=== PATIENT | female | born 1990 | race African-American/Black ===

== ENCOUNTER 2019-10-18 19:51 | Emergency (ER) | payer SELFPAY ==
[~2019-10-18] VITALS: Ht 154.9 cm; Wt 47.2 kg
[2019-10-18 20:10] VITALS: BP 100/60
--- NOTE | 2019-10-18 20:10 | NUR ---
ED Nurse Note: Pt walked into ED c/o right side chest pain, pain in shoulder to neck d/t coughing for one week. Pt stated she was sick, coughing. Pt stated 8/10 pain worse with coughing. Not in any distress. No SOB. VSS.
--- NOTE | 2019-10-18 20:33 | NUR ---
ED Nurse Note: Xray at bedside.
--- NOTE | 2019-10-18 20:40 | Emergency Room Report ---
History of Present Illness General Chief Complaint: Upper Respiratory Illness Present Illness HPI 29-year-old female with no significant past medical history here complaining for 1 month of cough and congestion with green phlegm. Reports that she smokes marijuana on daily basis. Denies tobacco smoke at this time. Denies other drug use. Denies any new onset fever and chills and sore throat. Has not taken medication for symptom relief. Complains of 2 days of sternal and bilateral lower ribs pain radiating to his shoulders x2 days. Denies any fall or injury. Denies other associated symptoms. Rating pain 5 out of 10 without radiation. Denies at this time. Up-to-date with immunization. Denies any recent travel. Allergies: Coded Allergies: No Known Allergies (Unverified , 10/18/19) Patient History Past Medical History: see triage record Past Surgical History: unable to obtain Pertinent Family History: none Last Menstrual Period: 10/11/2019 Now: No Immunizations: UTD Reviewed Nursing Documentation: PMH: Agreed; PSxH: Agreed Nursing Documentation-PMH Hx Asthma: Yes Review of Systems All Other Systems: negative except mentioned in HPI Physical Exam Vital Signs Date Time Temp Pulse Resp B/P (MAP) Pulse Ox O2 Delivery O2 Flow Rate FiO2 10/18/19 20:02 98.4 70 16 100/60 (73) 98 Room Air Sp02 EP Interpretation: reviewed, normal General Appearance: no apparent distress, alert, GCS 15, non-toxic Head: normocephalic, atraumatic Eyes: bilateral eye normal inspection, bilateral eye PERRL ENT: hearing grossly normal, normal pharynx, no angioedema, normal voice Neck: full range of motion, supple/symm/no masses Respiratory: chest non-tender, lungs clear, normal breath sounds, no rhonchi, no wheezing, speaking full sentences Cardiovascular #1: regular rate, rhythm, no edema, no murmur Gastrointestinal: non tender, soft, no mass Rectal: deferred Genitourinary: no CVA tenderness Musculoskeletal: back normal, no calf tenderness Neurologic: alert, motor strength/tone normal, oriented x3, sensory intact, responsive, speech normal Psychiatric: judgement/insight normal, memory normal, mood/affect normal, no suicidal/homicidal ideation Skin: no rash Lymphatic: no adenopathy Medical Decision Making PA Attestation All my diagnosis and treatment plans were reviewed ad discussed with my supervising physician Dr. Dickerson Diagnostic Impression: Primary Impression: Acute bacterial bronchitis Additional Impression: Acute costochondritis ER Course 29-year-old female with no significant past medical history here complaining for 1 month of cough and congestion with green phlegm. Reports that she smokes marijuana on daily basis. Denies tobacco smoke at this time. Denies other drug use. Denies any new onset fever and chills and sore throat. Has not taken medication for symptom relief. Complains of 2 days of sternal and bilateral lower ribs pain radiating to his shoulders x2 days. Denies any fall or injury. Denies other associated symptoms. Rating pain 5 out of 10 without radiation. Denies at this time. Up-to-date with immunization. Denies any recent travel. Ddx considered but are not limited to: bronchitis, PNA, URI viral, bacterial bronchitis Vital signs: are WNL, pt. is afebrile H&PE are most consistent with: Bacterial bronchitis, costochondritis ORDERS: Chest x-ray, Augmentin, guaifenesin, albuterol, Motrin ED INTERVENTIONS: None required at this time. DISCHARGE: At this time pt. is stable for d/c to home. Will provide printed patient care instructions, and any necessary prescriptions. Care plan and follow up instructions have been discussed with the patient prior to discharge. Patient to avoid smoking, follow-up primary care provider, take medication as directed, if worsening symptoms return to emergency room Chest X-Ray Diagnostic Results Chest X-Ray Diagnostic Results : Chest X-Ray Ordered: Yes # of Views/Limited/Complete: 1 View Indication: Other - Cough EP Interpretation: Yes CHRISTIN Xray: Interpretation reviewed, by supervising MD, and agrees with findings. Interpretation: no consolidation, no effusion, no pneumothorax Impression: No acute disease Electronically Signed by: Rhoda Jerome PA-C Last Vital Signs Date Time Temp Pulse Resp B/P (MAP) Pulse Ox O2 Delivery O2 Flow Rate FiO2 10/18/19 20:02 98.4 70 16 100/60 (73) 98 Room Air Disposition: HOME, SELF-CARE Condition: Stable Scripts Ibuprofen* (MOTRIN*) 600 Mg Tablet 600 MG ORAL Q8H PRN for For Pain, #30 TAB 0 Refills Prov: Rhoda Farrell 10/18/19 Albuterol Sulfate (VENTOLIN HFA) 18 Gm Hfa.aer.ad 2 PUFFS INH EVERY 6 HOURS, #18 GM 0 Refills Prov: Rhoda Farrell 10/18/19 Guaifenesin* (GUAIFENESIN*) 100 Mg/5 Ml Liquid 5 ML ORAL Q6H, #120 ML 0 Refills Prov: Rhoda Farrell 10/18/19 Amoxicillin/Potassium Clav 875-125* (AUGMENTIN 875-125 TABLET*) 1 Each Tablet 1 TAB ORAL TWICE A DAY for 10 Days, #20 TAB Prov: Rhoda Farrell 10/18/19 Patient Instructions: Acute Bronchitis, [id number], Costochondritis, Easy-to- Read Additional Instructions: Take medication as directed, follow with primary care provider, increase oral hydration, avoid smoking, if worsening symptoms return to the emergency room Rhoda Farrell Oct 18, 2019 20:40
[2019-10-18] MEDS ORDERED: IBUPROFEN600 MG ORAL (20:43)
[2019-10-18] MEDS ORDERED: VENTOLIN HFA18 GM INH (20:43)
[2019-10-18] MEDS ORDERED: GUAIFENESI100 MG/5 M ORAL (20:43)
[2019-10-18] MEDS ORDERED: AUGMENTIN 875-1 EAC1 ORAL (20:43)
[2019-10-18 20:46] VITALS: BP 100/60
--- NOTE | 2019-10-18 20:46 | NUR ---
ED Nurse Note: Pt cleared by ERMD for discharge. DC instructions/prescription was given and explained to pt and verbalized understanding of teachings. All medical deviecs such as ID band removed. Pt is AAO x4, ambulatory and left with all personal belongings.
--- NOTE | 2019-10-19 14:07 | Diagnostic Imaging Report ---
Indication: Dyspnea Comparison: None A single view chest radiograph was obtained. Findings: Cardiomediastinal appearance is within normal limits for age. The lungs are clear. Pulmonary vascularity is appropriate. The diaphragmatic contour is smooth and costophrenic angles are sharp. No pleural effusions are identified. The bones are unremarkable. Impression: No acute findings
== END 2019-10-18 20:46 | disposition home or self-care (01) ==
LOC: EMR 20:41
DX: J20.9 Acute bronchitis, unspecified (principal); M94.0 Chondrocostal junction syndrome [Tietze]
CPT/HCPCS: 71045; 99283

== ENCOUNTER 2020-02-28 10:41 | Emergency (ER) | payer MEDICAID ==
[~2020-02-28] VITALS: Ht 180.3 cm; Wt 54.0 kg
[~2020-02-28 10:41] MED LIST: AUGMENTIN 875-1 EAC1 ORAL; GUAIFENESI100 MG/5 M ORAL; IBUPROFEN600 MG ORAL; VENTOLIN HFA18 GM INH
--- NOTE | 2020-02-28 11:10 | Emergency Room Report ---
History of Present Illness General Chief Complaint: Complications Source: Patient Present Illness HPI Patient is a 29-year-old female who is G2, P0 at approximately 14weeks presented for increased vaginal bleeding. Onset of symptoms this morning. Increased urinary urgency without any abdominal cramping. Reports having small amount of bleeding which had onset spontaneously. Prior history of spontaneous at 6 weeks with prior denies any fever. Had not been having any fevers. Allergies: Coded Allergies: No Known Allergies (Unverified , 10/18/19) COVID-19 Screening Contact w/high risk pt: No Recent Travel to affected area: No Experienced COVID-19 symptoms?: No COVID-19 Testing performed MUSIC MINISTER: No Patient History Past Medical History: see triage record Now: Yes - 14 weeks Reviewed Nursing Documentation: PMH: Agreed; PSxH: Agreed Nursing Documentation-PMH Past Medical History: No History, Except For Hx Asthma: Yes Review of Systems All Other Systems: negative except mentioned in HPI Physical Exam Vital Signs Date Time Temp Pulse Resp B/P (MAP) Pulse Ox O2 Delivery O2 Flow Rate FiO2 02/28/20 10:46 98.4 90 15 120/79 (93) 98 Room Air Sp02 EP Interpretation: reviewed, normal General Appearance: normal inspection, well appearing, no apparent distress, alert, GCS 15 Head: atraumatic ENT: normal ENT inspection, hearing grossly normal, normal voice Neck: normal inspection, full range of motion, supple, no bony tend Respiratory: normal inspection, lungs clear, normal breath sounds, no respiratory distress, no retraction, no wheezing Cardiovascular #1: regular rate, rhythm, no edema Gastrointestinal: normal inspection, normal bowel sounds, non tender, soft, no guarding, no hernia Genitourinary: no CVA tenderness Musculoskeletal: normal inspection, back normal, normal range of motion Neurologic: alert, motor strength/tone normal, fuse cutter III-XII nml as tested, oriented x3, responsive, speech normal, normal inspection Psychiatric: normal inspection, judgement/insight normal, mood/affect normal Medical Decision Making Diagnostic Impression: Primary Impression: Threatened ER Course Patient presented for vaginal bleeding. Differential diagnosis include was not limited to incomplete , threatened miscarriage, coagulopathy, anemia among others. Because of complexity of patient's case laboratory tests and imaging studies were ordered.Pelvic ultrasound showed intrauterine with adequate heart tones. Patient's blood type was noted to be O+. Patient appears to be stable for close outpatient follow-up with her [facility]. Patient was advised to return if she had worsening bleeding or other concerns. She was advised that we do not have labor and delivery services at this facility. The patient is advised to follow up with [facility]IST[facility] in 1-2 days. Patient is advised to return if any worsening condition or if any changes in status that are concerning. This report is dictated with [employer] establishment guide software which may occasionally lead to discrepancies related to use of this software. Labs Test 02/28/20 11:00 White Blood Count 8.9 K/UL (4.8-10.8) Red Blood Count 4.16 M/UL (4.20-5.40) Hemoglobin 13.3 G/DL (12.0-16.0) Hematocrit 41.2 % (37.0-47.0) Mean Corpuscular Volume 99 FL (80-99) Mean Corpuscular Hemoglobin 32.0 PG (27.0-31.0) Mean Corpuscular Hemoglobin Concent 32.3 G/DL (32.0-36.0) Red Cell Distribution Width 11.7 % (11.6-14.8) Platelet Count 282 K/UL (150-450) Mean Platelet Volume 6.4 FL (6.5-10.1) Neutrophils (%) (Auto) 66.0 % (45.0-75.0) Lymphocytes (%) (Auto) 25.3 % (20.0-45.0) Monocytes (%) (Auto) 6.0 % (1.0-10.0) Eosinophils (%) (Auto) 1.0 % (0.0-3.0) Basophils (%) (Auto) 1.7 % (0.0-2.0) Prothrombin Time 10.3 SEC (9.30-11.50) Prothromb Time International Ratio 0.9 (0.9-1.1) Activated Partial Thromboplast Time 27 SEC (23-33) Urine Color Pale yellow Urine Appearance Clear Urine pH 7 (4.5-8.0) Urine Specific [place] 1.005 (1.005-1.035) Urine Protein Negative (NEGATIVE) Urine Glucose (UA) Negative (NEGATIVE) Urine Ketones Negative (NEGATIVE) Urine Blood 5+ (NEGATIVE) Urine Nitrite Negative (NEGATIVE) Urine Bilirubin Negative (NEGATIVE) Urine Urobilinogen Normal MG/DL (0.0-1.0) Urine Leukocyte Esterase 2+ (NEGATIVE) Urine RBC 10-15 /HPF (0 - 2) Urine WBC 2-4 /HPF (0 - 2) Urine Squamous Epithelial Cells Few /LPF (NONE/OCC) Urine Bacteria Few /HPF (NONE) Sodium Level 138 MMOL/L (136-145) Potassium Level 3.7 MMOL/L (3.5-5.1) Chloride Level 104 MMOL/L (98-107) Carbon Dioxide Level 26 MMOL/L (21-32) Anion Gap 8 mmol/L (5-15) Blood Urea Nitrogen 7 mg/dL (7-18) Creatinine 0.6 MG/DL (0.55-1.30) Estimat Glomerular Filtration Rate > 60 mL/min (>60) Glucose Level 95 MG/DL (74-106) Calcium Level 8.5 MG/DL (8.5-10.1) Total Bilirubin 0.6 MG/DL (0.2-1.0) Aspartate Amino Transf (AST/SGOT) 19 U/L (15-37) Alanine Aminotransferase (ALT/SGPT) 15 U/L (12-78) Alkaline Phosphatase 47 U/L (46-116) Total Protein 6.7 G/DL (6.4-8.2) Albumin 3.1 G/DL (3.4-5.0) Globulin 3.6 g/dL Albumin/Globulin Ratio 0.9 (1.0-2.7) Human Chorionic Gonadotropin, Quant 13081 mIU/mL (1-6) Last Vital Signs Date Time Temp Pulse Resp B/P (MAP) Pulse Ox O2 Delivery O2 Flow Rate FiO2 02/28/20 10:46 98.4 90 15 120/79 (93) 98 Room Air Oscar Palomo MD Feb 28, 2020 11:10
--- NOTE | 2020-02-28 11:18 | NUR ---
ED Nurse Note:pt. came with c/o vaginal bleeding no pain ,she is 14 weeks , ambulatory, blood and urine sent to labs, given IV fluids
[2020-02-28 11:28] LABS: APPEARANCE,URINE CLEAR; BILIRUBIN, URINE NEGATIVE (NEGATIVE); COLOR,URINE PALE YELLOW; GLUCOSE, URINE (UA) NEGATIVE (NEGATIVE); KETONES,URINE NEGATIVE (NEGATIVE); LEUKOCYTE ESTERASE ,URINE 2+ (NEGATIVE); NITRITE,URINE NEGATIVE (NEGATIVE); PH,URINE 7 (4.5-8.0); PROTEIN,URINE NEGATIVE (NEGATIVE); UROBILINOGEN,URINE NORMAL MG/DL (0.0-1.0)
[2020-02-28 11:33] LABS: INR 0.9 (0.9-1.1)
[2020-02-28 11:35] LABS: ANION GAP 8 mmol/L (5-15); BLOOD UREA NITROGEN 7 mg/dL (7-18); CALCIUM 8.5 MG/DL (8.5-10.1); CARBON DIOXIDE 26 MMOL/L (21-32); CHLORIDE 104 MMOL/L (98-107); CREATININE 0.6 MG/DL (0.55-1.30); POTASSIUM 3.7 MMOL/L (3.5-5.1); SODIUM 138 MMOL/L (136-145)
[2020-02-28 11:39] LABS: BASOPHILS % (AUTO) 1.7 % (0.0-2.0); HEMATOCRIT 41.2 % (37.0-47.0); HEMOGLOBIN 13.3 G/DL (12.0-16.0); LYMPHOCYTES % (AUTO) 25.3 % (20.0-45.0); MEAN CORPUSCULAR VOLUME 99 FL (80-99); PLATELET COUNT 282 K/UL (150-450); RED BLOOD COUNT 4.16 M/UL (4.20-5.40); RED CELL DISTRIBUTION WIDTH 11.7 % (11.6-14.8); WHITE BLOOD COUNT 8.9 K/UL (4.8-10.8)
[2020-02-28 11:42] LABS: ALANINE AMINOTRANSFERASE 15 U/L (12-78); ALBUMIN 3.1 G/DL (3.4-5.0); ALBUMIN/GLOBULIN RATIO 0.9 (1.0-2.7); ALKALINE PHOSPHATASE 47 U/L (46-116); ASPARTATE AMINO TRANSFERASE 19 U/L (15-37); BILIRUBIN,TOTAL 0.6 MG/DL (0.2-1.0)
--- NOTE | 2020-02-28 12:27 | NUR ---
ED Nurse Note:U/S was done
[2020-02-28 13:20] VITALS: BP 120/79
--- NOTE | 2020-02-28 13:20 | NUR ---
ER DISCHARGE NOTE: Patient is cleared to be discharged per ERMD, pt is aox4, on room air, with stable vital signs. pt was given dc and prescription instructions, pt was able to verbalize understanding, pt id band and iv site removed without complications. pt is able to ambulate with steady gait. pt took all belongings.
--- NOTE | 2020-02-28 16:37 | Diagnostic Imaging Report ---
EXAM: US Second or Third Trimester , Transabdominal and Transvaginal CLINICAL HISTORY: Pelvic pain, vaginal bleeding, spotting TECHNIQUE: Real-time transabdominal and endovaginal obstetrical ultrasound of the maternal pelvis and a second or third trimester with image documentation. Endovaginal imaging was used for better evaluation of the fetus and adnexa. COMPARISON: No relevant prior studies available. FINDINGS: Fetus: Single live intrauterine corresponding to 13 weeks 4 days by ultrasound, estimated delivery 08/31/20. Heart rate: heart rate 148 BPM. Presentation: Breech Placenta: Posterior placenta. No abruption. Amniotic fluid: Unremarkable. Anatomy: Intracranial findings demonstrate cystic prominence bases bilateral frontal lobes, possible ventriculomegaly not measured. Normal nuchal fold 2.2 mm. Face anatomy unremarkable. Spinal anatomy unremarkable. Abdominal anatomy unremarkable. Extremities unremarkable. Four-chamber heart unremarkable. Umbilical cord, three-vessel cord unremarkable. BIOMETRICS Gestational age: 13 weeks 4 days by ultrasound and 14 weeks 0 days by LMP. MALICK: 08/31/20 by ultrasound EFW: 76 g plus or -11 g, 7.78 percentile BPD: BPD 2.37 cm, 14 weeks 0 days. HC: HC 8.82 cm, 13 weeks 6 days. AC: AC 6.3 cm, 13 weeks 3 days. FL: FL 1.14 cm, 13 weeks 3 days. MATERNAL: Uterus: Unremarkable. No myometrial mass. Cervix: Cervix closed, 4.68 cm. Adnexa: Not seen. Free fluid: No free fluid. IMPRESSION: 1. Single live intrauterine corresponding to 13 weeks 4 days by ultrasound, estimated delivery 08/31/20. 2. Cervix closed, 4.68 cm. 3. Query bilateral frontal lobe cystic changes in the intracranial compartment and possible ventriculomegaly. Follow-up.
== END 2020-02-28 13:20 | disposition home or self-care (01) ==
LOC: EMR 10:55
DX: O20.0 Threatened abortion (principal); Z3A.13 13 weeks gestation of pregnancy
CPT/HCPCS: 36415; 76805; 80053; 81001; 84702; 85025; 85610; 85730; 86900; 86901; 96360; J7030; Z7502; 99284